=== PATIENT | male | born 1960 | race Caucasian/White ===

== ENCOUNTER 2019-04-21 13:52 | Outpatient (CLI) | payer BC, SELFPAY ==
--- NOTE | 2019-04-21 14:15 | USCV_ITS ---
Richard Cedillo Age: 58 Gender: M : 1960 Exam Date: 04/21/2019 14:22 Ordering Phys: Alexandrea Momin APN Technologist: PEREZ KLEIN Exam Location: [facility] [place] Indication: PAIN PROCEDURES: Venous duplex imaging was performed in only the right lower extremity. The following venous structures were evaluated: common femoral vein, profunda vein, proximal portion of the greater saphenous vein, femoral vein, and the popliteal vein. In addition, the posterior tibial and peroneal trunk were evaluated. Serial compression, augmentation maneuvers, and spectral Doppler flow evaluation were performed. FINDINGS: Superficial clot is noted in the right greater saphenous below the knee. All other veins imaged appear free of thrombus at this time. CONCLUSIONS No DVT right lower extremity. Right superficial thrombophlebitis. Dr. Kimberly Lima DO (Electronically Signed) Final Date: 21 April 2019 14:59 S
== END 2019-04-21 13:53 | disposition home or self-care (01) ==
PROVIDERS: Family Provider Nurse Practitioner; PCP Nurse Practitioner; Visit Provider Nurse Practitioner Family
DX: I80.01 Phlebitis and thrombophlebitis of superficial vessels of right lower extremity (principal); M79.661 Pain in right lower leg; M79.604 Pain in right leg; M79.89 Other specified soft tissue disorders
CPT/HCPCS: 93971